=== PATIENT | male | born 1935 | race Caucasian/White ===

== ENCOUNTER 2018-06-20 12:18 | Emergency (ER) | payer MEDICARE, OTHER, SELFPAY ==
[2018-06-20 12:27] VITALS: BP 155/85; PULSE 60; RESP 16; TEMP 36.5; O2SAT 96; BMI 30.9
[2018-06-20 15:40] VITALS: BP 173/88; PULSE 56; RESP 15; O2SAT 96
[2018-06-20 16:31] LABS: Add Manual Diff / Slide Review NO; Basophils Percent Auto 0.8 % (0-2); Eosinophils Percent Auto 1.8 % (2-4); Hematocrit 45.6 % (41-53); Hemoglobin 15.5 g/dL (13.5-17.5); Lymphocytes Percent Auto 21.9 % (25-40); Mean Corpuscular HGB Conc 34.1 % (30-36); Mean Corpuscular Hemoglobin 32.8 PG (26-34); Mean Corpuscular Volume 96.1 fL (80-100); Monocytes Percent Auto 9.8 % (3-14); Neutrophils Absolute Auto 5800 /uL (3000-5900); Neutrophils Percent Auto 65.7 % (50-75); Platelet Count 213 X10^3/uL (150-400); Red Blood Cell Count 4.74 X10^6/uL (4.5-5.9); Red Cell Distribution Width 14.3 % (11.6-14.8); White Blood Cell Count 8.8 X10^3/uL (4.5-11.0)
[2018-06-20 16:42] LABS: Alanine Aminotransferase 27 IU/L (21-72); Albumin 4.4 g/dL (3.5-5.0); Albumin Globulin Ratio 1.8 (1.0-2.8); Alkaline Phosphatase 52 U/L (38-126); Amylase 51 U/L (30-110); Aspartate Aminotransferase 19 IU/L (17-59); BUN Creatinine Ratio 15.5 (6-22); Bilirubin Total 0.5 mg/dL (0.2-1.3); Blood Urea Nitrogen 17 mg/dL (9-20); Calcium 9.7 mg/dL (8.4-10.2); Carbon Dioxide 26 mmol/L (22-32); Chloride 103 mmol/L (98-107); Estimated Glomerular Filt Rate > 60.0 mL/min (>60); Globulin 2.5 g/dL (1.7-4.1); Glucose 93 mg/dL (80-110); HEMOLYSIS < 15 (0-50); Lipase 138 U/L (23-300); Potassium 4.4 mmol/L (3.4-5.1); Sodium 143 mmol/L (137-145); Total Protein 6.9 g/dL (6.3-8.2)
--- NOTE | 2018-06-20 16:46 | DI.CT.S_ITS ---
PROCEDURE: CT ABDOMEN PELVIS W CON INDICATIONS: abd pain TECHNIQUE: After the administration of intravenous contrast, 5 mm thick sections acquired from the diaphragm to the symphysis. 5 mm coronal and sagittal reformats were acquired. For radiation dose reduction, the following was used: automated exposure control, adjustment of mA and/or kV according to patient size. COMPARISON: [facility], CT, IVP (ABD & PEL WWO CONTRAST), 05/16/2015, 12:05. FINDINGS: Image quality: Excellent. ABDOMEN: Lung bases: Lung bases are clear. Heart size is normal. Solid organs: Liver is normal in size and enhancement. Gallbladder negative. Biliary system is non dilated. Pancreas enhances normally. Spleen is normal in size and enhancement. No adrenal nodules. Kidneys demonstrate normal size and enhancement, without hydronephrosis. There bilateral renal cysts. Peritoneum and bowel: Trace high hernia. Incidental colonic diverticulosis without evidence of acute inflammation. The rectum is collapsed otherwise unremarkable however there are mildly prominent lymph nodes seen in the mesorectal fat. Appendix normal. No free fluid or air. Nodes and vessels: No retroperitoneal or mesenteric adenopathy by size criteria. Aorta and inferior vena cava are normal in size. Miscellaneous: No ventral hernias. PELVIS: Genitourinary: Bladder contains numerous sub-4 mm bladder calculi. Prostate is enlarged. Miscellaneous: Small left inguinal fat containing hernia. No inguinal lymphadenopathy.. Bones: No suspicious bony lesions. No vertebral body compression fractures. IMPRESSION: Overall, no acute abnormality. No urolithiasis. No evidence of urinary obstruction. Multiple mildly prominent lymph nodes seen within the mesorectal fat worrisome for occult rectal malignancy. Please correlate clinically and as clinically warranted assess with endoscopic evaluation. Normal appendix. Multiple bladder calculi as before. Bilateral renal cysts, as before. Enlarged prostate. Dictated by: Shaka Mcdaniel M.D. on 06/20/2018 at 17:18 Approved by: Shaka Mcdaniel M.D. on 06/20/2018 at 17:24
[2018-06-20] MEDS: SODIUM CHLORIDE 0.9% 1,000 ML 1000 ML IV (17:06)
--- NOTE | 2018-06-20 17:30 | DI.US.S_ITS ---
PROCEDURE: US ABDOMEN COMPLETE INDICATIONS: RIGHT UPPER QUADRANT PAIN TECHNIQUE: Real-time scanning was performed of the abdominal and retroperitoneal organs, with image documentation. COMPARISON: [facility], CT, IVP (ABD & PEL WWO CONTRAST), 05/16/2015, 12:05. FINDINGS: Liver: Liver is normal in size and homogeneous in echotexture. Gallbladder: There are gallbladder polyps measuring up to 6.5 mm. No gallbladder wall thickening. No sonographic Isaac sign or pericholecystic fluid Biliary ducts: Intrahepatic bile ducts are non-dilated. Extrahepatic bile duct caliber measures 6 mm. Normal is 6-7 mm or less in diameter, or 10 mm or less post-cholecystectomy. Pancreas: Visualized portions of the pancreas are sonographically normal. Spleen: Spleen is normal in size and homogeneous in echotexture. Kidneys: Kidneys are normal in size and echotexture. Right kidney measures 12.7 cm long; left kidney measures 12.1 cm long. No hydronephrosis or nephrolithiasis. No solid masses. Simple appearing left renal cysts measuring up to 5.3 x 4.1 x 4.5 cm. There is a right renal cyst with no internal vascularity although some internal echoes measuring 5.2 x 6.2 x 4.1 cm. Aorta: Visualized aorta is normal in caliber at less than 3 cm. however the proximal aorta is not well-seen due to shadowing bowel gas/body habitus. Iliacs: Proximal common iliac arteries are normal in caliber at less than 2.5 cm. IVC: Not well-seen. Miscellaneous: No free abdominal fluid. IMPRESSION: Gallbladder polyps, with no sonographic evidence of acute cholecystitis. Mildly complex right renal cyst as above. Continued surveillance with ultrasound could be performed as clinically warranted to document long-term stability. Dictated by: Shaka Mcdaniel M.D. on 06/20/2018 at 20:04 Approved by: Shaka Mcdaniel M.D. on 06/20/2018 at 20:08
--- NOTE | 2018-06-20 18:11 | ED_ITS ---
HPI - Abdominal Pain <[facility] - Last Filed: 06/20/18 21:29> General Chief Complaint: Abdominal Pain Stated Complaint: right side pain Time Seen by Provider: 06/20/18 15:43 Source: patient and family Mode of arrival: ambulatory Limitations: no limitations History of Present Illness HPI narrative: patient is an 82-year-old male with history of prostate cancer who presents with chief complaint of right upper abdominal pain that started on as well as stomach bloating and generalized stomach discomfort. He has not had a bowel movement in 2 days, but states he has not been eating much since . He complains of decreased appetite but denies nausea vomiting or diarrhea. He denies any fevers chills rigors cough congestion shortness of breath or chest pain. Movement makes the pain worse as well as taking a deep breath. He has not taken anything for pain. He has not treatment for prostate cancer at this point time. he denies any dysuria urgency or frequency. He states that the pain is on the right of his stomach underneath his ribs. Related Data Allergies Allergy/AdvReac Type Severity Reaction Status Date / Time adhesive tape [ADHESIVE TAPE] Allergy Unknown Verified 06/20/18 12:27 codeine [CODEINE] Allergy Unknown nausea Verified 06/20/18 12:27 Penicillins [PENICILLINS] Allergy Unknown rash-childh Verified 06/20/18 12:27 ood Review of Systems <[facility] - Last Filed: 06/20/18 21:29> Review of Systems GENERAL: Denies chills, fatigue, malaise, fever, sweats. HEENT: Denies sinus pain, ear pain, sore throat, difficulty swallowing, dizziness. RESPIRATORY: Denies dyspnea, cough, wheezing, hemoptysis, sputum. CARDIOVASCULAR: Denies chest pain, palpitations, orthopnea, edema, GASTROINTESTINAL: See HPI : Denies dysuria, frequency, incontinence, hematuria, urinary retention. MUSCULOSKELETAL: denies weakness, joint pain, or bony pain SKIN: Denies rash, skin lesions, or other NEUROLOGIC: Denies weakness, headache, numbness, change in speech, confusion, seizures, incoordination. PSYCHIATRIC: No concerning psychosocial issues. Exam <[facility] - Last Filed: 06/20/18 21:29> Narrative Exam Narrative: GENERAL: Delightful elderly gentleman lying on stretcher HEAD: Atraumatic. Normocephalic. No temporal or scalp tenderness. EYES: Pupils equal round and reactive. Extraocular motions intact. No scleral icterus. No injection or drainage. ENT: Nose without bleeding, purulent drainage or septal hematoma. Throat without erythema, tonsillar hypertrophy or exudate. Uvula midline. Airway patent. NECK: Trachea midline. No JVD or lymphadenopathy. Supple, nontender, no meningeal signs. CARDIOVASCULAR: Regular rate and rhythm without murmurs, gallops, or rubs. No pain on lateral wall chest wall motion. No pain on anterior posterior chest wall compression. RESPIRATORY: Clear to auscultation. Breath sounds equal bilaterally. No wheezes , rales, or rhonchi. no cough on exam. No increased respiratory effort. GASTROINTESTINAL: Abdomen soft but slightly distended, hyperactive bowel sounds all 4 quadrants, no pain on palpation of right lower left lower quadrants. No pain on palpation of left upper quadrant. Pain on palpation of right upper quadrant. Positive [employer] sign. EXTREMITIES: No edema noted. No clubbing. Using all extremities equally. BACK: Nontender without deformity or crepitance. No flank tenderness. NEURO: AOx3. SKIN: No rash or erythema. Initial Vital Signs Initial Vital Signs: Vital Signs Temperature 97.7 F 06/20/18 12:27 Pulse Rate 60 06/20/18 12:27 Respiratory Rate 16 06/20/18 12:27 Blood Pressure 155/85 H 06/20/18 12:27 Pulse Oximetry 96 06/20/18 12:27 <Kati Tello DO - Last Filed: 06/26/18 08:35> Initial Vital Signs Initial Vital Signs: Vital Signs Temperature 97.7 F 06/20/18 12:27 Pulse Rate 60 06/20/18 12:27 Respiratory Rate 16 06/20/18 12:27 Blood Pressure 155/85 H 06/20/18 12:27 Pulse Oximetry 96 06/20/18 12:27 Course <LIAM West-[facility] - Last Filed: 06/20/18 21:29> Course Narrative: I checked on the patient his several times throughout his stay in the emergency department. I discussed with the patient's length the findings the patient's imaging including concern for inflamed lymph nodes and rectal area, as well as polyps off the gallbladder. I discussed that this could be evidence of metastasis or benign etiology. Patient and plan on following up with primary care provider tomorrow. Orders Ordered: Discontinued Medications Sodium Chloride (Normal Saline 0.9%) 1,000 mls @ 1,000 mls/hr IV BOLUS ONE Stop: 06/20/18 16:59 Last Infusion: 06/20/18 20:32 Dose: 0 mls/hr Admin: 06/20/18 17:06 Dose: 1,000 mls/hr Vital Signs - 8 hr 06/20/18 15:40 06/20/18 19:26 Pulse Rate 56 L 48 L Respiratory Rate 15 17 Blood Pressure [Left Arm] 173/88 H 149/83 H Pulse Oximetry 96 100 <Kati Tello DO - Last Filed: 06/26/18 08:35> Orders Ordered: Discontinued Medications Sodium Chloride (Normal Saline 0.9%) 1,000 mls @ 1,000 mls/hr IV BOLUS ONE Stop: 06/20/18 16:59 Last Infusion: 06/20/18 20:32 Dose: 0 mls/hr Admin: 06/20/18 17:06 Dose: 1,000 mls/hr Vital Signs - 8 hr 06/20/18 15:40 06/20/18 19:26 Pulse Rate 56 L 48 L Respiratory Rate 15 17 Blood Pressure [Left Arm] 173/88 H 149/83 H Pulse Oximetry 96 100 MDM - Abdominal Pain <MUKUND WestBC - Last Filed: 06/20/18 21:29> Lab Data Result diagrams: 06/20/18 16:17 06/20/18 16:17 Lab Results 06/20/18 06/20/18 Range/Units 16:17 16:17 WBC 8.8 (4.5-11.0) X10^3/uL RBC 4.74 (4.5-5.9) X10^6/uL Hgb 15.5 (13.5-17.5) g/dL Hct 45.6 (41-53) % MCV 96.1 (80-100) fL MCH 32.8 (26-34) PG MCHC 34.1 (30-36) % RDW 14.3 (11.6-14.8) % Plt Count 213 (150-400) X10^3/uL Neut % (Auto) 65.7 (50-75) % Lymph % (Auto) 21.9 L (25-40) % [place] % (Auto) 9.8 (3-14) % Eos % (Auto) 1.8 L (2-4) % Baso % (Auto) 0.8 (0-2) % Neut # (Auto) 5800 (3114-8276) /uL Sodium 143 (137-145) mmol/L Potassium 4.4 (3.4-5.1) mmol/L Chloride 103 (98-107) mmol/L Carbon Dioxide 26 (22-32) mmol/L BUN 17 (9-20) mg/dL Creatinine 1.10 (0.66-1.25) mg/dL Estimated GFR > 60.0 (>60) mL/min BUN/Creatinine Ratio 15.5 (6-22) Glucose 93 (80-110) mg/dL Calcium 9.7 (8.4-10.2) mg/dL Total Bilirubin 0.5 (0.2-1.3) mg/dL AST 19 (17-59) IU/L ALT 27 (21-72) IU/L Alkaline Phosphatase 52 (38-126) U/L Total Protein 6.9 (6.3-8.2) g/dL Albumin 4.4 (3.5-5.0) g/dL Globulin 2.5 (1.7-4.1) g/dL Albumin/Globulin Ratio 1.8 (1.0-2.8) Amylase 51 (30-110) U/L Lipase 138 (23-300) U/L Point of care testing: Urine Dip Bedside Urine Glucose Negative Bedside Urine Bilirubin - Negative Bedside Urine Ketone ++ 40 Urine Specific Gordon 1.010 Bedside Urine Occult Blood - Negative Bedside Urine pH 6.5 Bedside Urine Protein - Negative Bedside Urine Urobilinogen - Negative Bedside Urine Nitrite - Negative Bedside Urine Leukocytes - Negative Esterase Imaging Data CT scan - abdomen: Radiologist's impression: 7 AILYN [facility] ACTIVITY DATE EXAM STATUS AUTHOR 06/20/18 16:46 Signed Shaka Mcdaniel ~ ORDER STATUS ORDER START ORDER DETAIL US abdomen complete Ordered 06/20/18 17:[address] [address] [address] Scan Report Signed Patient: Dominic Hutchinson LMR#: [id number] : 7Acct:[id number] Age/Sex: 82 / MDate of Service: 06/20/18 Loc: ED Accession Number: [id number] Procedure: CT abdomen pelvis w con Ordering Provider: Kati Clifford [employer]- PROCEDURE: CT ABDOMEN PELVIS W CON INDICATIONS: abd pain TECHNIQUE: After the administration of intravenous contrast, 5 mm thick sections acquired from the diaphragm to the symphysis. 5 mm coronal and sagittal reformats were acquired. For radiation dose reduction, the following was used: automated exposure control, adjustment of mA and/or kV according to patient size. COMPARISON: [facility], CT, IVP (ABD & PEL WWO CONTRAST), 05/16/2015, 12:05. FINDINGS: Image quality: Excellent. ABDOMEN: Lung bases: Lung bases are clear. Heart size is normal. Solid organs: Liver is normal in size and enhancement. Gallbladder negative. Biliary system is non dilated. Pancreas enhances normally. Spleen is normal in size and enhancement. No adrenal nodules. Kidneys demonstrate normal size and enhancement, without hydronephrosis. There bilateral renal cysts. Peritoneum and bowel: Trace high hernia. Incidental colonic diverticulosis without evidence of acute inflammation. The rectum is collapsed otherwise unremarkable however there are mildly prominent lymph nodes seen in the mesorectal fat. Appendix normal. No free fluid or air. Nodes and vessels: No retroperitoneal or mesenteric adenopathy by size criteria. Aorta and inferior vena cava are normal in size. Miscellaneous: No ventral hernias. PELVIS: Genitourinary: Bladder contains numerous sub-4 mm bladder calculi. Prostate is enlarged. Miscellaneous: Small left inguinal fat containing hernia. No inguinal lymphadenopathy.. Bones: No suspicious bony lesions. No vertebral body compression fractures. IMPRESSION: Overall, no acute abnormality. No urolithiasis. No evidence of urinary obstruction. Multiple mildly prominent lymph nodes seen within the mesorectal fat worrisome for occult rectal malignancy. Please correlate clinically and as clinically warranted assess with endoscopic evaluation. Normal appendix. Multiple bladder calculi as before. Bilateral renal cysts, as before. Enlarged prostate. Dictated by: Shaka Mcdaniel M.D. on 06/20/2018 at 17:18 Approved by: Shaka Mcdaniel M.D. on 06/20/2018 at 17:24 US - abdomen: Radiologist's impression: [address] [address] Ultrasound Report Signed Patient: Dominic Hutchinson LMR#: [id number] : 1936Acct:[id number] Age/Sex: 82 / MDate of Service: 06/20/18 Loc: ED Accession Number: [id number] Procedure: US abdomen complete Ordering Provider: Kati Clifford PROCEDURE: US ABDOMEN COMPLETE INDICATIONS: RIGHT UPPER QUADRANT PAIN TECHNIQUE: Real-time scanning was performed of the abdominal and retroperitoneal organs, with image documentation. COMPARISON: [facility], CT, IVP (ABD & PEL WWO CONTRAST), 05/16/2015, 12: 05. FINDINGS: Liver: Liver is normal in size and homogeneous in echotexture. Gallbladder: There are gallbladder polyps measuring up to 6.5 mm. No gallbladder wall thickening. No sonographic Isaac sign or pericholecystic fluid Biliary ducts: Intrahepatic bile ducts are non-dilated. Extrahepatic bile duct caliber measures 6 mm. Normal is 6-7 mm or less in diameter, or 10 mm or less post-cholecystectomy. Pancreas: Visualized portions of the pancreas are sonographically normal. Spleen: Spleen is normal in size and homogeneous in echotexture. Kidneys: Kidneys are normal in size and echotexture. Right kidney measures 12.7 cm long; left kidney measures 12.1 cm long. No hydronephrosis or nephrolithiasis. No solid masses. Simple appearing left renal cysts measuring up to 5.3 x 4.1 x 4.5 cm. There is a right renal cyst with no internal vascularity although some internal echoes measuring 5.2 x 6.2 x 4.1 cm. Aorta: Visualized aorta is normal in caliber at less than 3 cm. however the proximal aorta is not well-seen due to shadowing bowel gas/body habitus. Iliacs: Proximal common iliac arteries are normal in caliber at less than 2.5 cm. IVC: Not well-seen. Miscellaneous: No free abdominal fluid. IMPRESSION: Gallbladder polyps, with no sonographic evidence of acute cholecystitis. Mildly complex right renal cyst as above. Continued surveillance with ultrasound could be performed as clinically warranted to document long-term stability. Dictated by: Shaka Mcdaniel M.D. on 06/20/2018 at 20:04 Approved by: Shaka Mcdaniel M.D. on 06/20/2018 at 20:08 [facility] Narrative Medical decision making narrative: Patient is an 82-year-old male who presented with chief complaint of right upper quadrant abdominal pain upon movement and palpation. We had a CBC, CMP, amylase and lipase. He had a CT of his abdomen done as well as in the ultrasound given his right upper quadrant pain and positive Isaac sign. Likely thinks came back grossly normal, but the patient did have results indicating polyps as well as multiple prominent lymph nodes suspicious for rectal malignancy. I discussed these results at length with patient and . The plan of following up with primary care provider tomorrow. Patient with no questions or concerns. Discussed at length return precautions including worsening pain, fever and acute concerns. <Kati Tello, DO - Last Filed: 06/26/18 08:35> Lab Data Lab Results 06/20/18 06/20/18 Range/Units 16:17 16:17 WBC 8.8 (4.5-11.0) X10^3/uL RBC 4.74 (4.5-5.9) X10^6/uL Hgb 15.5 (13.5-17.5) g/dL Hct 45.6 (41-53) % MCV 96.1 (80-100) fL MCH 32.8 (26-34) PG MCHC 34.1 (30-36) % RDW 14.3 (11.6-14.8) % Plt Count 213 (150-400) X10^3/uL Neut % (Auto) 65.7 (50-75) % Lymph % (Auto) 21.9 L (25-40) % [place] % (Auto) 9.8 (3-14) % Eos % (Auto) 1.8 L (2-4) % Baso % (Auto) 0.8 (0-2) % Neut # (Auto) 5800 (5033-1622) /uL Sodium 143 (137-145) mmol/L Potassium 4.4 (3.4-5.1) mmol/L Chloride 103 (98-107) mmol/L Carbon Dioxide 26 (22-32) mmol/L BUN 17 (9-20) mg/dL Creatinine 1.10 (0.66-1.25) mg/dL Estimated GFR > 60.0 (>60) mL/min BUN/Creatinine Ratio 15.5 (6-22) Glucose 93 (80-110) mg/dL Calcium 9.7 (8.4-10.2) mg/dL Total Bilirubin 0.5 (0.2-1.3) mg/dL AST 19 (17-59) IU/L ALT 27 (21-72) IU/L Alkaline Phosphatase 52 (38-126) U/L Total Protein 6.9 (6.3-8.2) g/dL Albumin 4.4 (3.5-5.0) g/dL Globulin 2.5 (1.7-4.1) g/dL Albumin/Globulin Ratio 1.8 (1.0-2.8) Amylase 51 (30-110) U/L Lipase 138 (23-300) U/L Point of care testing: Urine Dip Bedside Urine Glucose Negative Bedside Urine Bilirubin - Negative Bedside Urine Ketone ++ 40 Urine Specific Gordon 1.010 Bedside Urine Occult Blood - Negative Bedside Urine pH 6.5 Bedside Urine Protein - Negative Bedside Urine Urobilinogen - Negative Bedside Urine Nitrite - Negative Bedside Urine Leukocytes - Negative Esterase Discharge Plan Departure Patient Disposition: Home Clinical Impression: Abdominal pain Discharge Date/Time: 06/20/18 20:20 Interventions: ED Discharge Assessment Last Done: 06/20/18 20:32 Instructions: DI for Abdominal Pain-Adult Activity Restrictions/Additional Instructions: Please follow-up with you primary care doctor tomorrow as discussed. Come back to the emergency department for any urgent needs Including sudden worsening abdominal pain, heart attack and stroke concerns. Referrals: Jian De Guzman MD [Primary Care Provider] - <Kati Tello DO - Last Filed: 06/26/18 08:35> Cosign ED Attending Costiarraature Attestation: I was immediately available in the department for consultation. This documentation has been reviewed and I agree with assessment and plan. Supervised by Ktai Tello DO
[2018-06-20 19:26] VITALS: BP 149/83; PULSE 48; RESP 17; O2SAT 100
== END 2018-06-20 20:20 | disposition home or self-care (01) ==
PROVIDERS: Emergency Provider Nurse Practitioner Family; Family Provider Family Medicine; PCP Family Medicine
DX: R10.9 Unspecified abdominal pain (principal)
CPT/HCPCS: 36591; 74177; 76700; 80053; 81003; 82150; 83690; 85025; 96360; 96361; 99283; 99285; Q9967

== ENCOUNTER → 2018-12-30 12:00 | Outpatient (CLI) | payer MEDICARE, OTHER, SELFPAY ==
--- NOTE | 2018-12-30 | DI.RAD.S_ITS ---
PROCEDURE: XR ABDOMEN 1V INDICATIONS: R/O Cancer tracking to spine TECHNIQUE: One view of the abdomen acquired. COMPARISON: None. FINDINGS: Surgical changes and devices: None. Bowel: Bowel gas pattern is normal. Soft tissues: No suspicious abdominal calcifications. Visualized solid organ contours appear normal in size. Bones: No suspicious bony lesions. Diffuse spondylosis and lateral curvature of the spine. There is also mild bilateral hip joint degeneration. Nonspecific scattered pelvic ossifications. IMPRESSION: No specific evidence of bowel obstruction seen at this time although if the patient's symptoms do not improve, continued surveillance with abdominal series radiographs could be performed. Dictated by: Shaka Mcdaniel M.D. on 12/30/2018 at 15:38 Approved by: Shaka Mcdaniel M.D. on 12/30/2018 at 15:39
--- NOTE | 2018-12-30 | DI.RAD.S_ITS ---
PROCEDURE: XR LUMBAR SPINE 2-3V INDICATIONS: R/O Cancer tracking to spine TECHNIQUE: 3 views of the lumbar spine were acquired. COMPARISON: [facility], , -SPINE 2-3 VIEWS, 02/27/2016, 10:57. FINDINGS: Bones: No fracture or focal osseous destruction. Lateral curvature of the spine partially visualized. Straightening of the normal lumbar lordosis. Multilevel degenerative endplate sclerosis and spurring. Diffuse facet arthropathy. Moderate narrowing of all lumbar disc spaces, with relative sparing at L3-L4 where there is mild height loss. Soft tissues: Overlying bowel gas pattern is normal. No suspicious soft tissue calcifications. Scattered vascular calcifications seen in the aorta. IMPRESSION: Multilevel lumbar spondylosis, with no interval change since 02/27/16. No focal osseous destruction seen although if there is persistent clinical concern, contrast enhanced MRI could be performed. Dictated by: Shaka Mcdaniel M.D. on 12/30/2018 at 14:17 Approved by: Shaka Mcdaniel M.D. on 12/30/2018 at 14:19
== END ==
PROVIDERS: Family Provider Family Medicine; PCP Family Medicine; Visit Provider Family Medicine
DX: C61 Malignant neoplasm of prostate (principal); M47.816 Spondylosis without myelopathy or radiculopathy, lumbar region; M16.0 Bilateral primary osteoarthritis of hip
CPT/HCPCS: 72100; 74018

== ENCOUNTER → 2019-09-05 12:14 | Outpatient (CLI) | payer MEDICARE, OTHER, SELFPAY ==
--- NOTE | 2019-09-05 | DI.RAD.S_ITS ---
PROCEDURE: XR RIBS RT 2V INDICATIONS: RIGHT RIB PAIN TECHNIQUE: 2 views of the right ribs were acquired. COMPARISON: [place], [place], BONE SCAN WHOLE BODY, 05/16/2015, 14:14. FINDINGS: Surgical changes and devices: None. Bones and chest wall: No fractures or dislocations. No suspicious bony lesions. Overlying soft tissues appear unremarkable. Lungs and pleura: The visualized lung appears clear. No pleural effusions or pneumothorax are visible. IMPRESSION: No definite osteolytic or blastic bone lesion found. The comparison study is a nuclear medicine bone scan from April 2015. If there is a more recent bone scan it would be valuable to obtain for review. Dictated by: Bandar Ghosh M.D. on 09/05/2019 at 13:18 Approved by: Bandar Ghosh M.D. on 09/05/2019 at 13:21
--- NOTE | 2019-09-05 | DI.RAD.S_ITS ---
PROCEDURE: XR CHEST 2V INDICATIONS: RIGHT RIB PAIN TECHNIQUE: 2 views of the chest were acquired. COMPARISON: [facility], , CHEST 2 VIEW, 09/15/2011, 11:39. FINDINGS: Surgical changes and devices: None. Lungs and pleura: Lungs are clear. No pleural effusions or pneumothorax. Mediastinum: Mediastinal contours are normal. Heart size is normal. Bones and chest wall: No definite suspicious bony abnormalities but there is a slight degree of increased radiodensity at the anterior right sixth rib. Soft tissues appear unremarkable. IMPRESSION: Slight increased right anterior sixth rib radiodensity, located in a position where ribs are overlapping. Comparison to nuclear medicine bone scan would be helpful if clinically warranted.. Dictated by: Bandar Ghosh M.D. on 09/05/2019 at 13:21 Approved by: Bandar Ghosh M.D. on 09/05/2019 at 13:24
== END ==
PROVIDERS: Family Provider Student in an Organized Health Care Education/Training Program; PCP Family Medicine; Visit Provider Family Medicine
DX: R07.81 Pleurodynia (principal); C44.511 Basal cell carcinoma of skin of breast
CPT/HCPCS: 71046; 71100

== ENCOUNTER → 2019-10-13 12:42 | Outpatient (CLI) | payer MEDICARE, OTHER, SELFPAY ==
--- NOTE | 2019-10-13 12:47 | DI.US.S_ITS ---
PROCEDURE: US SCROTUM INDICATIONS: SCROTAL PAIN TECHNIQUE: Real-time scanning was performed of the scrotum and testicles, with image documentation. Color and pulse Doppler interrogation was performed of both testicles. COMPARISON: None. FINDINGS: Right: Testicle is reduced in size at 2.0 x 2.4 x 3.0 cm, and homogenous in echotexture. Epididymis is normal in overall size and morphology. No hydrocele or varicoceles. Overlying scrotal skin is normal in thickness. Left: Testicle is reduced in size at 1.8 x 2.7 x 2.7 cm, and homogeneous in echotexture. Epididymis is normal in overall size and morphology. No hydrocele or varicoceles. Overlying scrotal skin is normal in thickness. Doppler: Color and pulse Doppler demonstrate reduced symmetric symmetric arterial flow in both testicles and each epididymis. IMPRESSION: Source of scrotal pain is not found. 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 Dictated by: Bandar Ghosh M.D. on 10/13/2019 at 16:23 Approved by: Bandar Ghosh M.D. on 10/13/2019 at 16:28
== END ==
PROVIDERS: Family Provider Student in an Organized Health Care Education/Training Program; PCP Family Medicine; Referring Provider Student in an Organized Health Care Education/Training Program; Visit Provider Student in an Organized Health Care Education/Training Program
DX: N50.82 Scrotal pain (principal)
CPT/HCPCS: 76870